=== PATIENT | male | born 1985 | race Two or more races ===

== ENCOUNTER 2024-11-18 21:30 | Emergency (ER) | payer MEDICAID, SELFPAY ==
[2024-11-18 21:34] VITALS: BP 127/79; PULSE 119; RESP 20; TEMP 36.8; O2SAT 95
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
[2024-11-18 21:41] VITALS: BMI 34.4
[2024-11-18 22:59] VITALS: BP 122/72; PULSE 100; RESP 18; TEMP 36.7; O2SAT 96
== END 2024-11-18 23:00 ==
LOC: SERX 22:59
PROVIDERS: Emergency Provider Emergency Medicine
DX: Z02.89 Encounter for other administrative examinations (principal); S40.012A Contusion of left shoulder, initial encounter; X58.XXXA Exposure to other specified factors, initial encounter
CPT/HCPCS: 71045; 73030; 99283

== ENCOUNTER 2024-12-20 22:05 | Emergency (ER) | payer MEDICAID, SELFPAY ==
[2024-12-20 22:12] VITALS: BMI 31.3
[2024-12-20 22:14] VITALS: BP 146/93; PULSE 111; RESP 20; TEMP 37.2; O2SAT 95
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
== END 2024-12-20 22:35 ==
PROVIDERS: Emergency Provider Emergency Medicine
DX: Z02.89 Encounter for other administrative examinations (principal); G89.29 Other chronic pain; M25.512 Pain in left shoulder
CPT/HCPCS: 99281